=== PATIENT | female | born 1940 | race Two or more races ===

== ENCOUNTER 2020-05-12 09:10 | Outpatient (CLI) | payer OTHER | END 2020-05-12 09:15 | disposition home or self-care (01) | LOC: RAD 09:10 | PROVIDERS: ATTEND Colon & Rectal Surgery | DX: R07.89 Other chest pain (principal); K62.3 Rectal prolapse; K92.1 Melena ==

== ENCOUNTER 2020-05-21 09:22 | Outpatient (CLI) | payer OTHER | END 2020-05-21 09:33 | disposition home or self-care (01) | LOC: EKG 09:22 | PROVIDERS: ATTEND Colon & Rectal Surgery | DX: I10 Essential (primary) hypertension (principal) ==

== ENCOUNTER 2020-05-23 07:58 | Inpatient (IN) | payer OTHER ==
[~2020-05-23] VITALS: Ht 152.4 cm; Wt 51.7 kg
[2020-05-30] MEDS ORDERED: CLEARLAX119 GM (13:45)
[2020-05-30] MEDS ORDERED: MICONAZOLE NITR45 GM (13:45)
[2020-05-30] MEDS ORDERED: ROSUVASTATIN CA10 MG (13:45)
[2020-05-30] MEDS ORDERED: ACETAMINOPHEN500 M1 (13:45)
[2020-05-30] MEDS ORDERED: HYDROGEN PERO3840 ML (13:45)
[2020-05-30] MEDS ORDERED: ENEMA READY TO133 ML (13:45)
[2020-05-31] MEDS ORDERED: OXYC1TAB9 PO (19:47)
[2020-05-31] MEDS ORDERED: POLY119PG PO (19:47)
== END 2020-05-31 23:40 | disposition home or self-care (01) | DRG 331 ==
LOC: SURH 05-30 08:04 → O/R 05-30 08:04 → SURH 05-30 08:30
PROVIDERS: ADMIT Colon & Rectal Surgery; ATTEND Colon & Rectal Surgery
PROC: 0JQC0ZZ Repair Pelvic Region Subcutaneous Tissue and Fascia, Open Approach (ICD-10-PCS; 2020-05-30)
PROC: 0DUR0JZ Supplement Anal Sphincter with Synthetic Substitute, Open Approach (ICD-10-PCS; 2020-05-30)
PROC: 0DBP7ZZ Excision of Rectum, Via Natural or Artificial Opening (ICD-10-PCS; principal; 2020-05-30 11:00)
DX: K62.3 Rectal prolapse (principal); N81.6 Rectocele; Z20.828 Contact with and (suspected) exposure to other viral communicable diseases

== ENCOUNTER 2020-10-30 08:07 | Outpatient (CLI) | payer OTHER ==
[~2020-10-30 08:07] MED LIST: ACETAMINOPHEN500 M1; CLEARLAX119 GM; ENEMA READY TO133 ML; HYDROGEN PERO3840 ML; MICONAZOLE NITR45 GM; OXYC1TAB9 PO; POLY119PG PO; ROSUVASTATIN CA10 MG
== END 2020-10-30 08:18 | disposition home or self-care (01) ==
LOC: RAD 08:07
PROVIDERS: ATTEND General Practice
DX: I70.0 Atherosclerosis of aorta (principal); M19.90 Unspecified osteoarthritis, unspecified site

== ENCOUNTER 2021-06-28 07:25 | Outpatient (CLI) | payer OTHER | END 2021-06-28 07:30 | disposition home or self-care (01) | LOC: RAD 07:25 | PROVIDERS: ATTEND Student in an Organized Health Care Education/Training Program | DX: I10 Essential (primary) hypertension (principal); Z01.811 Encounter for preprocedural respiratory examination ==

== ENCOUNTER 2024-05-07 11:45 | Outpatient (CLI) | payer OTHER | END 2024-05-07 11:53 | disposition home or self-care (01) | LOC: RAD 11:45 | DX: M19.90 Unspecified osteoarthritis, unspecified site (principal) ==

== ENCOUNTER 2024-05-28 09:53 | Outpatient (CLI) | payer OTHER | END 2024-05-28 09:58 | disposition home or self-care (01) | LOC: RAD 09:53 | DX: M54.50 Low back pain, unspecified (principal) ==